=== PATIENT | male | born 1995 | race Caucasian/White ===

== ENCOUNTER 2018-03-11 16:29 | Emergency (ER) | payer OTHER ==
[~2018-03-11] VITALS: Ht 177.8 cm; Wt 78.2 kg
[2018-03-11 16:33] VITALS: TEMP 98.5
[2018-03-11 17:23] LABS: BASO # 0.1 (0.0-0.2); BASO % 0.7 % (0.0-2.0); EOS # 0.1 (0.0-0.7); EOS % 1.2 % (0-4.0); GRAN # 5.9 (1.4-6.5); HEMATOCRIT 46.6 % (42.0-52.0); HEMOGLOBIN 15.5 g/dl (13.5-18.0); LYMPH # 1.8 (1.2-3.4); LYMPH % 21.5 % (20.0-51.0); MEAN CELL VOLUME 87 fl (80.0-100.0); MEAN CORPUSCULAR HEMOGLOBIN 29 pg (27.0-31.0); MEAN CORPUSCULAR HGB CONC 33 g/dl (33.0-37.0); MEAN PLATELET VOLUME 10.7 fl (7.4-10.4); MONO # 0.6 (0.1-0.6); MONO % 7.4 % (1.7-9.3); PLATELET COUNT 292 K/mm3 (130-400); RED BLOOD COUNT 5.33 M/mm3 (4.20-5.60); REDCELL DISTRIBUTION WIDTH-CV 12.7 % (11.5-14.5)
[2018-03-11 17:33] LABS: ALANINE AMINOTRANSFERASE 37 U/L (21-72); ALBUMIN 4.7 gm/dL (3.5-5.0); ALKALINE PHOSPHATASE 73 U/L (50-136); ANION GAP 13 mmol/L (7-16); AST,SGOT 18 U/L (15-37); BILIRUBIN,TOTAL 0.9 mg/dL (0.0-1.0); BLOOD UREA NITROGEN 7 mg/dL (9-20); CALCIUM 9.6 mg/dL (8.4-10.2); CARBON DIOXIDE 27 mmol/L (22-30); CHLORIDE 100 mmol/L (98-107); CREATININE, serum 0.73 mg/dL (0.66-1.25); GLUCOSE 112 mg/dL (74-106); LIPASE 95 U/L (23-300); SODIUM 140 mmol/L (137-145); TOTAL PROTEIN 8.2 gm/dL (6.4-8.2)
[2018-03-11 17:36] LABS: C-REACTIVE PROTEIN < 0.5 mg/dL (0.0-0.9)
[2018-03-11] MEDS ORDERED: ZOFRAN ODT4 MG PO (17:54)
[2018-03-11 18:36] VITALS: BP 134/89; PULSE 98
== END 2018-03-11 18:36 | disposition home or self-care (01) ==
LOC: COL.ER 16:29
PROVIDERS: Emergency Medicine
DX: R10.32 Left lower quadrant pain (principal); R11.10 Vomiting, unspecified; R19.7 Diarrhea, unspecified
CPT/HCPCS: J1885; J2405; J7030